=== PATIENT | female | born 1990 | race African-American/Black ===

== ENCOUNTER 2019-11-19 22:59 | Emergency (ER) | payer OTHER, SELFPAY ==
--- NOTE | ~2019-11-19 | US_ITS ---
EXAMINATION: US OB <= 14 weeks fetus DATE: 11/20/2019 01:31 INDICATION: Abdominal pain during first trimester of TECHNIQUE: Real-time pelvic ultrasound utilizing both a transvaginal and transabdominal probe was pe rformed. The interpreting radiologist was not present for the study. COMPARISON: None. FINDINGS: The uterus measures 12.1 x 8.5 x 7.5 cm. There is an intrauterine gestational sac. A yolk sac and fe eugene pole are identified. The crown rump length measures 2.0 cm, which correlates with an estimated ge stational age of 8 weeks and 4 days. heart motion is identified measuring 159 beats per minute (bpm) by M-mode Doppler. Crescentic 1.5 x 1.5 x 0.3 cm hypoechoic corpus luteum cyst along the right fundal margin of the gestational sac. The right ovary measures 3.5 x 2.6 x 1.9 cm. The left ovary jana sures 3.2 x 2.7 x 2.2 cm. 14 x 10 x 12 mm anechoic likely corpus luteum cyst in the left ovary. There is no free fluid in the pelvis. IMPRESSION: 1. Single living fetus with heart rate of 159 bpm. 2. Gestational age by ultrasound of 8 weeks 4 day(s) +/- 5 day(s) with ultrasound estimated date of delivery (NOÉ) of 06/27/2020. Reviewed, dictated and finalized at location A. [facility] IMPRESSION: 1. Single living fetus with heart rate of 159 bpm. 2. Gestational age by ultrasound of 8 weeks 4 day(s) +/- 5 day(s) with ultraso und estimated date of delivery (NOÉ) of 06/27/2020.
[2019-11-19 23:00] VITALS: BP 125/72; PULSE 63; RESP 18; TEMP 37.1; O2SAT 100
[2019-11-19 23:25] LABS: Basophils Percent Auto 0.4 % (0.2-1.2); Eosinophils Absolute Auto 0.1 K/mm3 (0-0.3); Hematocrit 35.2 % (37.0-47.0); Hemoglobin 11.4 g/dL (12.0-15.0); Immature Granulocyte Absolute 0.02 K/mm3 (0.00-0.031); Immature Granulocyte Percent A 0.2 % (0-0.5); Mean Corpuscular HGB Conc 32.4 g/dl (32-36); Mean Corpuscular Hemoglobin 28.1 pg (26-34); Mean Corpuscular Volume 86.7 fl (80-100); Mean Platelet Volume 11.7 fl (7.4-10.4); Monocytes Absolute Auto 0.6 K/mm3 (0.1-0.6); Monocytes Percent Auto 7.5 % (2.6-8.5); Neutrophils Absolute Auto 5.1 K/mm3 (1.3-6.7); Neutrophils Percent Auto 60.9 % (45.5-73.1); Platelet Count Result 254 k/mm3 (150-375); Red Blood Count 4.06 M/mm3 (4.2-5.4); Red Cell Distribution Width 13.9 % (11.5-14.5); White Blood Count 8.3 K/mm3 (4.5-10.0)
[2019-11-19 23:37] LABS: Add Urine Microscopic? NO; Appearance Urine Clear (Clear); Bilirubin Urine Negative (Negative); Blood Urine Negative (Negative); Color Urine Yellow (Yellow); Glucose Urine UA Negative (Negative); Ketones Urine Negative (Negative); Leukocyte Esterase Ur Negative LEU/UL (Negative); Nitrate Urine Negative (Negative); Protein Urine Negative (Negative); Specific Grav Ur 1.026 (1.001-1.035); Urobilinogen Urine Negative mg/dL (<2.0)
--- NOTE | 2019-11-20 00:33 | ED.PREGNANCY ---
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 Pt is 8 weeks gestation. Pt's LMP was on 09/20/19. She notes that she took an at home test, but she has not seen an OB since her test. Pt denies any alleviating or aggravating factors. Pt also reports nausea, but denies vaginal bleeding, vaginal discharge, dysuria, fever, and vomiting. MD Complaint: abdominal pain Onset (ago): day(s) (1) Pain Consistency: constant Location: abdomen Associated symptoms: nausea Vaginal discharge: none Vaginal bleeding: none Date of Last Menstrual Period: 09/20/19 Patient : Yes Number of Weeks : 8 Related Data Allergies Allergy/AdvReac Type Severity Reaction Status Date / Time No Known Allergies Allergy Unverified 02/25/19 17:24 Review of Systems Review of Systems: All systems reviewed & are unremarkable except as noted in HPI and below Constitutional: Constitutional: Denies fever(s) Gastrointestinal: Gastrointestinal: Reports abdominal pain (suprapubic), Reports nausea and Denies vomiting Genitourinary: Genitourinary: Denies abnormal vaginal bleeding, Denies dysuria and Denies vaginal discharge [facility] Past Medical History Medical History (Updated 11/21/19 @ 00:00 by Guilherme Bean) PCOS (polycystic ovarian syndrome) Surgical History Surgical History (Updated 11/20/19 @ 00:39 by Denice Diana) No history of previous surgery Social History Social History (Updated 11/20/19 @ 00:39 by Denice Diana) Smoking status: Never smoker Exam Const: General: no acute distress and well developed Orientation/consciousness: oriented to person, oriented to place, oriented to time and patient oriented x3 HENMT: Head: normocephalic Ears: external ears normal General nose exam: Normal external nose present Eyes: General: appearance normal, both eyes and all related structures Conjunctivae: conjunctivae normal Neck: Neck: normal visual inspection and full ROM Chest: Chest palpation & inspection: normal inspection of the chest and no tenderness Resp: Effort & Inspection: normal respiratory effort Auscultation: clear to auscultation bilaterally Cardio: Rate: regular rate Rhythm: regular rhythm GI: GI Palp: No abdominal tenderness and Yes Soft to palpation : Speculum Exam - Vagina: abnormal vaginal discharge white and No vaginal bleeding Speculum Exam - Cervix: Cervical os closed Bimanual exam- vagina & uterus: No Cervical tenderness present and non-tender Bimanual Exam- Adnexa, other: No adnexal tenderness Skin: General skin exam: normal color and turgor normal Neuro: General: oriented to person, oriented to place, oriented to time and patient oriented x3 Cognition (Neuro): normal cognition Extrem: General: normal to inspection, full ROM and no pedal edema Psych: Appearance: grossly normal Mental Status: mental status grossly normal Affect: normal affect Course Vital Signs Vital signs: Vital Signs Temperature 37.1 C 11/19/19 23:00 Pulse Rate 63 11/19/19 23:00 Respiratory Rate 18 11/19/19 23:00 Blood Pressure 125/72 11/19/19 23:00 Pulse Oximetry 100 11/19/19 23:00 Temperature 37.1 C 11/19/19 23:00 Pulse Rate 65 11/20/19 02:00 Respiratory Rate 16 11/20/19 02:00 Blood Pressure 131/71 11/20/19 02:00 Pulse Oximetry 100 11/20/19 02:00 MDM - OB/Uterine Contractions Lab Data Result diagrams: 11/19/19 23:10 Labs: Lab Results 11/19/19 11/19/19 11/19/19 Range/Units 23:09 23:10 23:10 WBC 8.3 (4.5-10.0) K/mm3 RBC 4.06 L (4.2-5.4) M/mm3 Hgb 11.4 L (12.0-15.0) g/dL Hct
--- NOTE | 2019-11-20 01:09 | PC.NURSE ---
sandra in lab aware of hepatic panel add on.
[2019-11-20 01:19] LABS: Alanine Aminotransferase 16 U/L (4-35); Albumin Level 3.7 g/dL (3.5-5.1); Alkaline Phosphatase 65 U/L (38-126); Aspartate Amino Transferase 25 U/L (14-36); Bilirubin,Total 0.3 mg/dL (0.2-1.3)
[2019-11-20 02:00] VITALS: BP 131/71; PULSE 65; RESP 16; O2SAT 100
== END 2019-11-20 02:10 | disposition home or self-care (01) ==
PROVIDERS: General Practice; Emergency Provider Emergency Medicine
DX: O46.8X1 Other antepartum hemorrhage, first trimester (principal); O26.891 Other specified pregnancy related conditions, first trimester; R10.30 Lower abdominal pain, unspecified; O99.281 Endocrine, nutritional and metabolic diseases complicating pregnancy, first trimester; E28.2 Polycystic ovarian syndrome; Z3A.08 8 weeks gestation of pregnancy
CPT/HCPCS: 36415; 76801; 80076; 81003; 84702; 85025; 99284

== ENCOUNTER → 2020-01-21 14:00 | Outpatient (CLI) | payer OTHER, SELFPAY ==
--- NOTE | ~2020-01-21 | US_ITS ---
EXAMINATION: US OB >= 14 weeks Fetus DATE: 01/21/2020 14:55 INDICATION: Second trimester anatomic survey TECHNIQUE: Real-time ultrasound of the pelvis was performed. COMPARISON: None. FINDINGS: There is a single living fetus in variable presentation. The placenta is anterior and 4.6 cm from the internal cervical os. heart rate is 144 beats per minute (bpm). cardiac activity and fe eugene movement are noted. The amniotic fluid index is subjectively normal. The heart and outflow tracts are not well demonstrated. The following anatomy was identified as normal: 3 vessel cord cord insertion kidneys urinary bladder stomach spine diaphragm ventricles cisterna magna cerebellum The following biometric data were obtained: Biparietal diameter (BPD): 3.8 cm; head circumference (HC): 14.4 cm; abdominal circumference (AC): 12 .1 cm; femur length (FL): 2.2 cm. These measurements are concordant. Estimated weight is 192 g +/- 28 g, which correlates with the 41st percentile when 06/27/2020 is used as estimated date of delivery. As single measurements, these parameters are each equal to the following estimated gestational ages w ith ranges of +/- 2 standard deviations: BPD: 17 weeks 5 days ( 16 weeks 3 days - 18 weeks 6 days). HC: 17 weeks 4 days ( 16 weeks 3 days - 18 weeks 6 days). AC: 17 weeks 6 days ( 16 weeks 1 days - 19 weeks 3 days). FL: 16 weeks 6 days ( 15 weeks 3 days - 18 weeks 2 days). estimated gestational age based solely on measurements from this exam is 17 weeks 4 days +/- 1 weeks 2 days. IMPRESSION: 1. Single living fetus in variable presentation. 2. Estimated weight is 192 g +/- 28 g, which correlates with the 41st percentile when 06/27/2020 is used as estimated date of delivery. 3. Ventricular outflow tracts not well demonstrated. Reviewed, dictated and finalized at location B. IMPRESSION: 1. Single living fetus in variable presentation. 2. Estimated weight is 192 g +/- 28 g, which correlates with the 41st per centile when 06/27/2020 is used as estimated date of delivery. 3. Ventricular outflow tracts not well demonstrated.
== END ==
PROVIDERS: Visit Provider Obstetrics & Gynecology
DX: Z34.91 Encounter for supervision of normal pregnancy, unspecified, first trimester (principal); Z3A.17 17 weeks gestation of pregnancy
CPT/HCPCS: 76805

== ENCOUNTER 2020-02-24 10:42 | Outpatient (CLI) | payer OTHER, MEDICAID, SELFPAY ==
--- NOTE | ~2020-02-24 | US_ITS ---
EXAMINATION: US OB follow up DATE: 02/24/2020 11:29 INDICATION: Routine care TECHNIQUE: Real-time ultrasound of the pelvis was performed. The interpreting radiologist was not pre sent for the study. COMPARISON: 01/21/2020 FINDINGS: There is a single living fetus in breech presentation. The placenta is anterior and not low-lying wi th caudal margin 5.6 cm from the internal cervical os. heart rate is 139 beats per minute (bpm) . The amniotic fluid volume is subjectively normal. Normal four-chamber heart view and left ventricul ar and right ventricular outflow views. IMPRESSION: 1. Single living fetus in vertex presentation with heart rate of 139 bpm. 2. Normal heart views. Reviewed, dictated and finalized at location A.
== END 2020-02-24 10:43 | disposition home or self-care (01) ==
PROVIDERS: Visit Provider Obstetrics & Gynecology
DX: Z34.91 Encounter for supervision of normal pregnancy, unspecified, first trimester (principal)
CPT/HCPCS: 76816

== ENCOUNTER 2020-06-24 06:17 | Inpatient (IN) | payer OTHER, SELFPAY ==
[2020-06-24] VITALS (53 sets, daily range): BP systolic 87–133; BP diastolic 50–84; PULSE 79–105; RESP 13; TEMP 36.6–37.2; O2SAT 98–100; BMI 38.1
--- NOTE | 2020-06-24 06:37 | LDADM ---
This patient, Tristen Barragan, was admitted to Labor/Delivery/Recovery 103 on 06/24/20 at 06:17. Plans for labor, pain management and were discussed with patient. Patient/family oriented to hospital policies and general routines including ID bracelet, bed and alarms, visiting hours, pain management, procedures, bathroom and other care routines, personal items, smoking policy, room service/diet and guest tray routines, security routines, and visiting hours. Patient/Family are encouraged to report perceived risks to care and to ask questions if they do not understand what they are told or what they should do. See OBIX for further documentation.
[2020-06-24] MEDS: LACTATED RINGERS 1,000 ML 125 ML IV CONT (06:51)
[2020-06-24] MEDS: AMPICILLIN 2 GM/NS 100 ML 2 GM/100 ML BAG IVPB (06:51)
[2020-06-24] MEDS: OXYTOCIN 30 UNITS/NS 500 ML 30 UNITS/500 ML BAG IV CONT (06:52)
[2020-06-24 06:55] LABS: Basophils Percent Auto 0.2 % (0.2-1.2); Eosinophils Absolute Auto 0.1 K/mm3 (0-0.3); Eosinophils Percent Auto 0.8 % (0-4.4); Hematocrit 34.5 % (37.0-47.0); Hemoglobin 11.4 g/dL (12.0-15.0); Immature Granulocyte Absolute 0.05 K/mm3 (0.00-0.031); Immature Granulocyte Percent A 0.5 % (0-0.5); Lymphocytes Absolute Auto 1.84 K/mm3 (0.9-3.2); Lymphocytes Percent Auto 20.1 % (18.3-44.2); Mean Corpuscular Hemoglobin 29.6 pg (26-34); Mean Corpuscular Volume 89.6 fl (80-100); Mean Platelet Volume 12.1 fl (7.4-10.4); Monocytes Absolute Auto 0.7 K/mm3 (0.1-0.6); Monocytes Percent Auto 8.1 % (2.6-8.5); Neutrophils Absolute Auto 6.4 K/mm3 (1.3-6.7); Neutrophils Percent Auto 70.3 % (45.5-73.1); Platelet Count Result 208 k/mm3 (150-375); Red Blood Count 3.85 M/mm3 (4.2-5.4); Red Cell Distribution Width 13.8 % (11.5-14.5); White Blood Count 9.2 K/mm3 (4.5-10.0)
--- NOTE | 2020-06-24 06:57 | WPDANESEPP ---
Anes - Eval Pre Procedure Procedure: labor epidural Date/Time: 06/24/20 06:57 Preop Diagnosis: labor pain Pre Op Diagnosis: iol Patient Data Age: 29 Gender: F Height: 5 ft 5 in Weight: 104 kg Allergies Allergy/AdvReac Type Severity Reaction Status Date / Time latex Allergy Itching Verified 05/30/20 14:52 Home Medications Medication Instructions Recorded Confirmed Type folic acid 05/30/20 History metformin mg BID 05/30/20 History multivitamin tablet 05/30/20 History progesterone micronized mg BID 05/30/20 History Laboratory Tests 06/24/20 06/24/20 06/24/20 06:34 06:34 06:34 WBC Pending RBC Pending Hgb Pending Hct Pending MCV Pending MCH Pending MCHC Pending RDW Pending Plt Count Pending MPV Pending Immature Gran % (Auto) Pending Neut % (Auto) Pending Lymph % (Auto) Pending [place] % (Auto) Pending Eos % (Auto) Pending Baso % (Auto) Pending Lymph # (Auto) Pending [place] # (Auto) Pending Eos # (Auto) Pending Baso # (Auto) Pending Abs Immat Gran (auto) Pending Absolute Neuts (auto) Pending Absolute Nucleated RBC Pending Nucleated RBC % Pending RPR Pending HIV 1&2 Ab/P24 Ag 4thGn Pending Patient hx anesthesia problems: none Family hx anesthesia problems: none PMFSH Past Medical History Medical History (Updated 11/21/19 @ 00:00 by Guilherme Bean) PCOS (polycystic ovarian syndrome) Surgical History Surgical History (Updated 11/20/19 @ 00:39 by Denice Diana) No history of previous surgery Social History Social History (Updated 11/20/19 @ 00:39 by Denice Diana) Smoking status: Never smoker Substance use: never Gender identity (if verbalized by the patient): Female Spiritual care concerns: No Exam Day of Procedure 06/24/20 06:57
[2020-06-24 07:47] LABS: HIV 1/2 Ab P24 Ag Result Negative (Negative)
[2020-06-24] MEDS: AMPICILLIN 1 GM/NS 50 ML 1 GM/50 ML BAG IVPB ×2 (10:53→14:42)
--- NOTE | 2020-06-24 16:43 | PM.IMHP ---
H&P: HPI History of Present Illness Date/Time: 06/24/20 16:43 Chief complaint: iol Narrative: Tristen Barragan is a 29 year old AAF presents for LYN at 39w gestation.. Pmhx MTHFR (b12=9/2), abnormal progesterone, GBS, HPV, and PCOS. Plan for induction 06/24. No complaints. Review of Systems Review of Systems: All systems reviewed & are unremarkable except as noted in HPI and below Constitutional: Constitutional: Reports no additional constitutional complaints Eyes: Eyes: Reports no additional eye complaints ENT: Reports system reviewed and no additional complaints, except as documented Cardiovascular: Cardiovascular: Reports no additional cardiovascular complaints Respiratory: Respiratory: Reports no additional respiratory complaints Gastrointestinal: Gastrointestinal: Reports no additional gastrointestinal complaints Genitourinary: Genitourinary: Reports no additional female genitourinary complaints Musculoskeletal: Musculoskeletal: Reports no additional musculoskeletal complaints Integumentary/Breasts: Skin/Breast: Reports system reviewed and no additional complaints, except as docu Neurologic: Reports system reviewed and no additional complaints, except as documented Psychiatric: Psychiatric: Reports no additional psychiatric complaints Endocrine: Endocrine: Reports no additional endocrine complaints Hematologic/Lymphatic: Hematologic/Lymphatic: Reports no additional hematologic/lymphatic complaints Allergic/Immunologic: Allergic/Immunologic: Reports no additional allergic/immunologic complaints [facility] Past Medical History Medical History (Updated 06/24/20 @ 16:54 by Rajat Mercado MD) Cardiac arrhythmia GBS (group B Streptococcus carrier), +RV culture, currently 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 History of LEEP (loop electrosurgical excision procedure) of cervix complicating HPV (human papilloma virus) anogenital infection PCOS (polycystic ovarian syndrome) Rectocele Surgical History Surgical History (Updated 06/24/20 @ 16:51 by Rajat Mercado MD) H/O bilateral breast reduction surgery 2013 H/O LEEP 2007 History of dilatation and curettage 2016 No history of previous surgery Family History Family History (Updated 06/24/20 @ 16:51 by Rajat Mercado MD) Grandparent Diabetes mellitus Social History Social History (Updated 06/24/20 @ 16:52 by Rajat Mercado MD) Smoking status: Never smoker Second hand tobacco smoke exposure: No Alcohol intake: never Substance use: never Substance use type: does not use Living arrangements: with family Occupation/Education: unemployed Gender identity (if verbalized by the patient): Female Sexual Orientation (if Verbalized by the Patient): Straight or Heterosexual Spiritual care concerns: No Agree to blood products: Yes Meds Home Medications and Allergies Home Medications Medication Instructions Recorded Confirmed Type folic acid 1 mg PO DAILY 05/30/20 06/24/20 History metformin [Glucophage] 500 mg PO BID 05/30/20 06/24/20 History multivitamin 1 tablet PO DAILY 05/30/20 06/24/20 History progesterone micronized 200 mg VAGINAL BID 05/30/20 06/24/20 History Allergies Allergy/AdvReac Type Severity Reaction Status Date / Time latex Allergy Itching Verified 05/30/20 14:52 Vital Signs Vital Signs - 24 hr 06/24/20 07:01 06/24/20 07:16 06/24/20 07:30 Temperature 98 F Pulse Rate 88 87 Blood Pressure 111/79 109/73 Pulse Oximetry 06/24/20 07:31 06/24/20 07:46 06/24/20 08:01 Temperature Pulse Rate 79 81 89 Blood Pressure 113/62 115/72 123/76 Pulse Oximetry 06/24/20 08:16 06/24/20 08:31 06/24/20 08:46 Temperature Pulse Rate 91 86 105 H Blood Pressure 107/69 110/63 107/83 Pulse Oximetry 06/24/20 09:16 06/24/20 09:30 06/24/20 09:31 Temperature 97.9 F Pulse Rate 89 81 Blood Pressure 113/64 113/67 Pulse Oximetry 06/24/20 09:
--- NOTE | 2020-06-24 16:54 | WPDHPUPDATE1 ---
History and Physical Update Update Date/Time: 06/24/20 16:54 History and Physical has been reviewed, including an updated exam of the patient. There are NO changes in the patient's condition. Risks, benefits, and alternatives have been discussed and questions answered. Patient agrees to proceed with procedure. 29 yo AAF presents for LYN at 39w gestation.. Pmhx MTHFR (b12=9/), abnormal progesterone, GBS, HPV, and PCOS. Plan for induction 06/24. No complaints.
--- NOTE | 2020-06-24 16:55 | WPDOBADMIT ---
Obstetrics - Admit Note Admission Note: record reviewed. No pertinent additions to the history and/or any subsequent changes in the physical findings that are not consistent with the expected course of the were found. Additions to the history and/or subsequent changes in the physical findings follow. None. 29 yo AAF presents for LYN at 39w gestation.. Pmhx MTHFR (b12=/), abnormal progesterone, GBS, HPV, and PCOS. Plan for induction 06/24. No complaints. informed consent obtained
--- NOTE | 2020-06-24 16:55 | PM.OBPNLAB ---
Pain Control Date/time seen: 06/24/20 16:55 Pain control: tolerating well and narcotic analgesia Pelvic Exam Dilation (cm): 5 Effacement (%): 100 Amniotic membrane status: Bulging Comments: arom clear af iupc placed Contractions Monitor mode: External Contraction frequency: 3 Contraction duration: 45 Contraction pattern: Regular Contraction phase: Contraction Contraction intensity: Moderate Status status: Category l Assessment and Plan Pitocin rate (mU/min): 2 Assessment: active labor and induction ongoing Plan: continuous present management and begin patient augmentation
[2020-06-24] MEDS: OXYTOCIN 30 UNITS/NS 500 ML 30 UNITS/500 ML BAG 125 UNITS IV CONT (17:35)
--- NOTE | 2020-06-24 17:38 | PM.OBPRVD ---
OB - Delivery Note Procedure Delivery date: 06/24/20 Procedure: Normal Spontaneous vertex vaginal delivery of viable male infant and placenta Induction method: none Delivery augmentation: rupture of membranes and pitocin Delivery monitor: external FHT and internal uterine Route of delivery: Episiotomy description: None Laceration description: None Specimen: Yes (placenta) Estimated blood loss (mL): 200 Anesthesia type: None Disposition: floor Complications: none Narrative: Patient was completely dilated had a controlled normal spontaneous vertex vaginal delivery of a viable male infant over an intact perineum with legs in Monserrat bruits the infant vertex was delivered and then the anterior shoulder was delivered without difficulty the baby was placed on the maternal abdomen there was spontaneous respirations and cry bulb suction. The umbilical cord was clamped and cut and the infant was handed to the pediatric nurse in attendance scores 8 and 9 at 1 and 5 minutes wait 7 lb 9 oz 18-1/2 inches long infant taken to the nursery in stable condition the baby boy's name is Jonathan. The placenta was delivered at 5:10 p.m. intact with a 3 vessel cord after cord blood gases and cord blood was obtained the uterus contracted well with Pitocin given intravenously and blood loss was 200 cc. The cervix and rectum were checked no sponges left in the vagina no fistula the sphincter was intact the mom delivered in LDR Room 1. 0 3 time from rupture of membranes at 4:24 p.m. to the time of delivery at 5:04 p.m. 40 minutes. Mom and baby doing well VTE prevention not applicable patient ambulatory. GBS prophylaxis x3 doses penicillin patient will be breast feeding java j2ee lead Dr. Reyes and the baby will be circumcised in the morning Baby Date of : 06/24/20 Time of : 17:04 Weeks of gestation at delivery: 39 gender: Male Weight (pounds): 7 Weight (ounces): 9 presentation: vertex position: Left Occiput Anterior Placenta delivery description: Spontaneous and Normal Configuration cord vessel description: 3 Vessels score one minute: 8 score five minutes: 9
--- NOTE | 2020-06-24 17:45 | PM.OBDSVD ---
DS: Admitting Diagnosis Admitting Diagnosis Admitting Diagnosis: term History of prior loop electrosurgical excision procedure of the cervix Group B Streptococcus carrier Elective induction of labor History of cardiac arrhythmia History of rectocele History of HPV Heterozygous for MTHFR mutation PCOS DS: Discharge Diagnosis Discharge Diagnosis (1) Term : Code(s): Z34.90 - Encounter for supervision of normal , unspecified, unspecified trimester Status: Acute (2) Term delivered: Code(s): O80 - Encounter for full-term uncomplicated delivery Status: Acute (3) H/O LEEP: Code(s): Z98.890 - Other specified postprocedural states Status: Acute (4) History of LEEP (loop electrosurgical excision procedure) of cervix complicating : Code(s): O34.40 - Maternal care for other abnormalities of cervix, unspecified trimester; Z98.890 - Other specified postprocedural states Status: Acute (5) Rectocele: Code(s): N81.6 - Rectocele Status: Acute (6) Cardiac arrhythmia: Code(s): I49.9 - Cardiac arrhythmia, unspecified Status: Acute (7) HPV (human papilloma virus) anogenital infection: Code(s): A63.0 - Anogenital (venereal) warts Status: Acute (8) Heterozygous MTHFR mutation [id number]: Code(s): E72.12 - Methylenetetrahydrofolate reductase deficiency Status: Acute (9) GBS (group B Streptococcus carrier), +RV culture, currently : Code(s): O99.820 - Streptococcus B carrier state complicating Status: Acute OB - DS: Summary Hospital Course Time spent discussing smoking cessation with patient: 3 to 10 minutes OB Procedures : Ultrasound OB Procedures Intrapartum: Spontaneous Vag Delivery and GBS prophylaxis OB Procedures: : None Peripartum Data Delivery Method: Natural Vaginal Laceration description: None Episiotomy description: None complications: none 1: Gender: Male Disposition of : home Status at Discharge Functional status at discharge: independent ambulation Overall status at discharge: patient is back to baseline Time Spent with Patient Time attestation: Total time spent providing and/or coordinating discharge services: Time spent: Less than 30 minutes Exam Const: General: comfortable, no acute distress, alert and awake Orientation/consciousness: patient oriented x3 Limitations: no limitations Chest: Breast/axilla inspection: normal inspection of the breasts Breast/axilla palpation: normal palpation of the breasts Resp: Effort & Inspection: normal respiratory effort Cardio: Rate: regular rate GI: GI Palp: Yes Soft to palpation Percussion: Yes normal to percussion Auscultation: normal bowel sounds : General: Yes bladder normal to inspection and Yes no CVA tenderness Psych: Appearance: grossly normal Affect: normal affect Attitude: cooperative Thought content: Yes Normal thought content present Judgement: Good judgement present (Psych) DS: Data Data Completed and Pending Labs on day of discharge: Labs from last 24 hours 06/24/20 06/24/20 06/24/20 06:34 06:34 06:34 WBC 9.2 RBC 3.85 L Hgb 11.4 L Hct 34.5 L MCV 89.6 MCH 29.6 MCHC 33.0 RDW 13.8 Plt Count 208 MPV 12.1 H Immature Gran % (Auto) 0.5 Neut % (Auto) 70.3 Lymph % (Auto) 20.1 [place] % (Auto) 8.1 Eos % (Auto) 0.8 Baso % (Auto) 0.2 Lymph # (Auto) 1.84 [place] # (Auto) 0.7 H Eos # (Auto) 0.1 Baso # (Auto) 0.0 Abs Immat Gran (auto) 0.05 H Absolute Neuts (auto) 6.4 Absolute Nucleated RBC 0.0 Nucleated RBC % 0.0 RPR Pending HIV 1&2 Ab/P24 Ag 4thGn Blood Type A Positive Antibody Screen Negative 06/24/20 06:34 WBC RBC Hgb Hct MCV MCH MCHC RDW Plt Count MPV Immature Gran % (Auto) Neut % (Auto) Lymph % (Au
[2020-06-24] MEDS: IBUPROFEN 600 MG TABLET PO (18:23)
[2020-06-24] MEDS: WITCH HAZEL 40 PADS 1 PAD TOPICAL (19:22)
[2020-06-24] MEDS: BENZOCAINE 20% AER SPR (*SP) 56 GM CAN 1 SPRAY TOPICAL (19:22)
[2020-06-24] MEDS: HYDROcodone/acetaminophen (*CRX) 10-325 MG TABLET 1 TAB PO (20:12)
[2020-06-25] MEDS: IBUPROFEN 600 MG TABLET PO ×2 (04:57→14:14)
[2020-06-25 05:47] LABS: Hematocrit 32.8 % (37.0-47.0); Hemoglobin 10.8 g/dL (12.0-15.0)
[2020-06-25 07:35] VITALS: BP 109/67; PULSE 82; RESP 18; TEMP 36.6; O2SAT 96
--- NOTE | 2020-06-25 08:00 | PC.NURSE ---
PT introductions made and plan of care discussed per post , pain management, breast feeding, daily care activities. PT verbalized understanding of such care.
[2020-06-25] MEDS: DOCUSATE SODIUM 100 MG CAPSULE PO ×2 (09:45→17:36)
[2020-06-25] MEDS: MULTIVIT/MIN/PREN/FOL AC/IRON TABLET 1 TAB PO (09:45)
[2020-06-25] MEDS: HYDROcodone/acetaminophen (*CRX) 5-325 MG TABLET 1 TAB PO ×2 (09:46→17:36)
[2020-06-25] MEDS: LANOLIN (LANSINOH) 7.5 GM CREAM 1 APPLIC TOPICAL (09:47)
[2020-06-25 09:50] VITALS: PULSE 82; RESP 18; O2SAT 96
[2020-06-25 11:14] LABS: Rapid Plasma Reagin Non-Reactive (NonReactive)
--- NOTE | 2020-06-25 11:50 | PC.NURSE ---
Consulted with patient, mother is attempting to breast. Mother reports has used the nipple shield during the night. keeps tongue up and does not allow correct latch. Observed mother has had a breast reduction. Mother states she pumped and bottle fed last child with no milk supply issues. She pumped due to had a tied tongue and latch issues. Discussed nipple shield precautions and possible complications. Instructions given on application and cleaning of shield. Patient able to return demonstration on proper application of shield. Discussed the need for regular pumping if continues to nurse with the shield. Patient verbalizes understanding. Reviewed feeding cues, frequencies, duration of feedings, feeding elimination flow sheet, and signs of adequate intake. Demonstrated stimulation techniques to wake infant for feeding. Assisted with to breast with nipple shield. Reviewed positioning/alignment in cross cradle, holding breast in U hold and guided asymmetrical latch on. was able to latch correctly. nursed sleepily with bursts of rhythmic draws and occasional swallowing noted. Reviewed signs of a correct latch, effective nursing and suck swallow ratio. Infant was able to maintain latch without discomfort to mother. Nipple care reviewed. Suggested mother stimulate while feeding to keep infant awake and nursing effectively for increased intake and to assist with maintaining deep latch. Demonstrated how to adjust latch more deeply while feeding. Instructed mother to call out for RN assistance if she is unable to latch infant for feeding or she has discomfort with nursing. Instructed feeding should be initiated three hours from start of last feeding or if feeding cues are noted before. Mother voiced understanding of information shared.
[2020-06-25] MEDS: HYDROcodone/acetaminophen (*CRX) 10-325 MG TABLET 1 TAB PO (14:16)
--- NOTE | 2020-06-25 15:30 | PC.NURSE ---
Breast pump provided due to nipple shield use/ineffective feeding. Instructions given on breast pump care and usage, pumping schedule, nipple care, and collection and storage of breast milk. Encouraged [id number], breast massage and manual expression to stimulate supply. Assessed patient for correct flange size, placement and draw. Patient verbalizes and demonstrates understanding of instructions.
[2020-06-25 20:00] VITALS: BP 106/65; PULSE 82; RESP 16; TEMP 36.8
[2020-06-26] MEDS: IBUPROFEN 600 MG TABLET PO ×2 (01:20→09:28)
[2020-06-26 08:25] VITALS: BP 116/72; PULSE 88; RESP 18; TEMP 36.6; O2SAT 99
--- NOTE | 2020-06-26 09:25 | PC.NURSE ---
Patient instructed on viewing the discharge video Mother & Baby Care, The First Two Weeks . Patient was given the opportunity and encouraged to ask questions. Patient verbalized understanding of information shared and has been given the mother/baby guide for home reference.
[2020-06-26] MEDS: MULTIVIT/MIN/PREN/FOL AC/IRON TABLET 1 TAB PO (09:28)
[2020-06-26] MEDS: DOCUSATE SODIUM 100 MG CAPSULE PO (09:28)
[2020-06-29 10:21] VITALS: BP 111/64; PULSE 68; RESP 20; O2SAT 100
== END 2020-06-26 13:23 | disposition home or self-care (01) | DRG 806 ==
LOC: ANHLDR 17:51 → ANHOB2 19:42
PROVIDERS: Admitting Provider Obstetrics & Gynecology; Visit Provider Obstetrics & Gynecology
DX: O99.824 Streptococcus B carrier state complicating childbirth (principal); E72.12 Methylenetetrahydrofolate reductase deficiency; Z37.0 Single live birth; N81.6 Rectocele; O99.284 Endocrine, nutritional and metabolic diseases complicating childbirth; Z3A.39 39 weeks gestation of pregnancy; O99.42 Diseases of the circulatory system complicating childbirth; I49.9 Cardiac arrhythmia, unspecified
CPT/HCPCS: 36415; 85014; 85018; 85025; 86592; 86703; 86850; 86900; 86901; 88307; A9270; G0432; J0290; J2590; J3010; J7120

== ENCOUNTER 2021-06-26 01:15 | Emergency (ER) | payer OTHER, SELFPAY ==
--- NOTE | ~2021-06-26 | XR_ITS ---
EXAMINATION: XR chest 1V portable INDICATION: Shortness of breath and cough TECHNIQUE: Portable AP chest at 0204 hours COMPARISON: 02/25/2019 FINDINGS: The lungs are free of acute opacities. There is no pleural effusion or pneumothorax. The ca rdiomediastinal silhouette is normal. The visualized bones and soft tissues are unremarkable. IMPRESSION: 1. No acute cardiopulmonary abnormality. Reviewed, dictated and finalized at location A.
[2021-06-26 01:32] VITALS: BP 110/73; PULSE 98; RESP 20; TEMP 36.7; O2SAT 99
--- NOTE | 2021-06-26 01:41 | ECG_ITS ---
Measurements Intervals [place] Rate: 94 P: 48 PA: 147 QRS: 19 QRSD: 82 T: 3 QT: 330 QTc: 413 Interpretive Statements SINUS RHYTHM MINIMAL Q WAVES- HIGH LATERAL LEADS BASELINE ARTIFACT- I, III, AVR, AVL BORDERLINE ECG Electronically Signed On 06-26-2021 6:04:37 CDT by Fernando Villalobos D.O.
[2021-06-26 02:47] LABS: Basophils Percent Auto 0.3 % (0.2-1.2); Eosinophils Absolute Auto 0.2 K/mm3 (0-0.3); Eosinophils Percent Auto 2.4 % (0-4.4); Hematocrit 34.9 % (37.0-47.0); Hemoglobin 11.3 g/dL (12.0-15.0); Immature Granulocyte Absolute 0.02 K/mm3 (0.00-0.031); Immature Granulocyte Percent A 0.3 % (0-0.5); Lymphocytes Absolute Auto 2.18 K/mm3 (0.9-3.2); Lymphocytes Percent Auto 27.6 % (18.3-44.2); Mean Corpuscular HGB Conc 32.4 g/dl (32-36); Mean Corpuscular Hemoglobin 28.8 pg (26-34); Mean Platelet Volume 10.9 fl (7.4-10.4); Monocytes Absolute Auto 0.7 K/mm3 (0.1-0.6); Monocytes Percent Auto 8.4 % (2.6-8.5); Neutrophils Absolute Auto 4.8 K/mm3 (1.3-6.7); Platelet Count Result 275 k/mm3 (150-375); Red Blood Count 3.92 M/mm3 (4.2-5.4); White Blood Count 7.9 K/mm3 (4.5-10.0)
[2021-06-26 02:47] LABS: Add Urine Microscopic? NO; Appearance Urine Clear (Clear); Bilirubin Urine Negative (Negative); Blood Urine Negative (Negative); Color Urine Straw (Yellow); Glucose Urine UA Negative (Negative); Ketones Urine Negative (Negative); Leukocyte Esterase Ur Negative LEU/UL (Negative); Nitrate Urine Negative (Negative); Protein Urine Negative (Negative); Specific Grav Ur 1.012 (1.001-1.035); Urobilinogen Urine Negative mg/dL (<2.0)
[2021-06-26 02:53] LABS: D Dimer 1.04 ug/mL (<0.48)
[2021-06-26 02:56] LABS: Alanine Aminotransferase 17 U/L (4-35); Albumin Level 3.7 g/dL (3.5-5.1); Alkaline Phosphatase 77 U/L (38-126); Anion Gap 7 mmol/L (8-16); Aspartate Amino Transferase 39 U/L (14-36); Bilirubin,Total 0.4 mg/dL (0.2-1.3); Blood Urea Nitrogen 13 mg/dL (7-17); Calcium 8.5 mg/dL (8.4-10.2); Carbon Dioxide 26 mmol/L (22-30); Chloride 105 mmol/L (98-107); Estimated CRCL calculation 100 ml/min; Estimated Glomerular Filt Rate > 60; Glucose 99 mg/dL (65-110); Potassium 3.7 mmol/L (3.4-5.0); Sodium 138 mmol/L (137-145)
[2021-06-26 03:07] LABS: Troponin I < 0.012 ng/mL (0.000-0.034)
--- NOTE | 2021-06-26 03:08 | ED.GENADULT ---
HPI - General Adult General Chief complaint: Shortness of Breath/Dyspnea Stated complaint: Sob on exertion, cp, cough Time Seen by Provider: 06/26/21 01:45 History of Present Illness HPI narrative: Patient is a 30-year-old female who presents the emergency department with complaint of chest pain and cough. Patient states for the last several days she has had a sharp type pain in her sternal border reports that that the pain is worse with inspiration and worse with cough. The patient reports she had a dry cough with this report that its not improved by anything. Patient denies fever denies chills reports that she has not been vaccinated for Covid. Patient states that her last menstrual period was in April. Related Data Home Medications Medication Instructions Recorded Confirmed multivitamin 1 tablet PO DAILY 05/30/20 06/24/20 Allergies Allergy/AdvReac Type Severity Reaction Status Date / Time latex Allergy Itching Verified 05/30/20 14:52 Review of Systems Review of Systems: A 10 system review of systems was completed on the patient and is negative except for what is stated in the HPI. Nursing and ancillary documentation was reviewed. [facility] Past Medical History Medical History Cardiac arrhythmia GBS (group B Streptococcus carrier), +RV culture, currently Heterozygous MTHFR mutation [id number] History of LEEP (loop electrosurgical excision procedure) of cervix complicating HPV (human papilloma virus) anogenital infection Normal vaginal delivery 08/09/2019139.48 lbs.5 oz.FStandard Vaginal [facility]Full [facility]) Rectocele Vaginal delivery 05/08/201213913 hrs.7 lbs.15 oz.MStandard Vaginal DeliveryFull [facility] Surgical History Surgical History H/O bilateral breast reduction surgery 2013 H/O LEEP 2007 History of dilatation and curettage 2017 No history of previous surgery Family History Family History Grandparent Diabetes mellitus Social History Social History Smoking status: Never smoker Second hand tobacco smoke exposure: No Alcohol intake: never Substance use: never Substance use type: does not use Gender identity (if verbalized by the patient): Female Sexual Orientation (if Verbalized by the Patient): Straight or Heterosexual Spiritual care concerns: No Agree to blood products: Yes Exam Narrative: GENERAL: Well-appearing, well-nourished, and in no acute distress. HEAD: Normocephalic, atraumatic. EYES: PERRLA and EOMI. ENT: Nares clear, no rhinorrhea or epistaxis. Mucous membranes moist. NECK: Supple. CHEST: Clear to auscultation. No respiratory distress. There is tenderness to palpation in the right sternal border HEART: Regular rate and rhythm. No murmur heard. Normal peripheral pulses. ABDOMEN: Soft, nontender, nondistended, normal active bowel sounds. EXTREMITIES: Normal range of motion. No edema. SKIN: Warm, dry, no rash. NEURO: No focal deficits. Alert and oriented x3. PSYCH: Normal mood and affect. Course Course Emergency Course: EKG shows a sinus rhythm with a rate of [address] elevation or ST depression Patient's urinalysis showed evidence of positive test. Laboratory studies show a positive D-dimer. It was discussed with the patient the positive test and also discussed the positive D-dimer. It was discussed the risk and benefits of performing a CT scan to evaluate for possible pulmonary embolism patient is trying to decide at this time whether she would like to proceed with doing helical imaging. It was discussed further with the patient and she opted to
== END 2021-06-26 03:31 | disposition home or self-care (01) ==
PROVIDERS: Emergency Provider Emergency Medicine
DX: O26.891 Other specified pregnancy related conditions, first trimester (principal); R07.89 Other chest pain; O99.281 Endocrine, nutritional and metabolic diseases complicating pregnancy, first trimester; E28.2 Polycystic ovarian syndrome; R94.31 Abnormal electrocardiogram [ECG] [EKG]; Z3A.00 Weeks of gestation of pregnancy not specified
CPT/HCPCS: 36415; 71045; 80053; 81003; 81025; 84484; 85025; 85380; 93005; 99284

== ENCOUNTER 2021-08-08 09:10 | Emergency (ER) | payer OTHER, SELFPAY ==
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
[2021-08-08 09:18] VITALS: BP 119/67; PULSE 89; RESP 18; TEMP 36.4; O2SAT 100
[2021-08-08 09:25] VITALS: BP 119/67; PULSE 89; RESP 18; TEMP 36.4; O2SAT 100
--- NOTE | 2021-08-08 09:26 | ECG_ITS ---
Measurements Intervals [place] Rate: 78 P: 24 [place]: 154 QRS: 26 QRSD: 87 T: -2 QT: 352 QTc: 402 Interpretive Statements SINUS RHYTHM MINIMAL Q WAVES- HIGH LATERAL LEADS NONSPECIFIC ST-T WAVE ABNORMALITY- INFERIOR LEADS ABNORMAL ECG Electronically Signed On 08-08-2021 14:58:25 CDT by Fernando Villalobos D.O.
[2021-08-08 09:47] LABS: Basophils Absolute Auto 0.1 K/mm3 (0.0-0.1); Basophils Percent Auto 0.6 % (0.2-1.2); Eosinophils Absolute Auto 0.1 K/mm3 (0-0.3); Eosinophils Percent Auto 1.7 % (0-4.4); Hematocrit 38.8 % (37.0-47.0); Hemoglobin 12.7 g/dL (12.0-15.0); Immature Granulocyte Absolute 0.01 K/mm3 (0.00-0.031); Immature Granulocyte Percent A 0.1 % (0-0.5); Lymphocytes Percent Auto 25.7 % (18.3-44.2); Mean Corpuscular HGB Conc 32.7 g/dl (32-36); Mean Corpuscular Hemoglobin 29.4 pg (26-34); Mean Corpuscular Volume 89.8 fl (80-100); Mean Platelet Volume 10.7 fl (7.4-10.4); Monocytes Absolute Auto 0.4 K/mm3 (0.1-0.6); Monocytes Percent Auto 5.4 % (2.6-8.5); Neutrophils Absolute Auto 5.2 K/mm3 (1.3-6.7); Neutrophils Percent Auto 66.5 % (45.5-73.1); Platelet Count Result 285 k/mm3 (150-375); Red Blood Count 4.32 M/mm3 (4.2-5.4); White Blood Count 7.8 K/mm3 (4.5-10.0)
[2021-08-08 09:55] LABS: Add Urine Microscopic? YES; Appearance Urine Cloudy (Clear); Bilirubin Urine Negative (Negative); Blood Urine Negative (Negative); Color Urine Yellow (Yellow); Glucose Urine UA Negative (Negative); Ketones Urine Negative (Negative); Leukocyte Esterase Ur Negative LEU/UL (Negative); Mucus Urine Rare /lpf; Nitrate Urine Negative (Negative); Protein Urine Negative (Negative); Specific Grav Ur 1.017 (1.001-1.035); Squamous Epithelial Cell Urine Occasional /hpf (Few); Urobilinogen Urine Negative mg/dL (<2.0); WBC Urine 0-3 /hpf
[2021-08-08] MEDS: SODIUM CHLORIDE 0.9% IV 1,000 ML 999 ML IV CONT (09:56)
[2021-08-08 10:03] LABS: Alanine Aminotransferase 11 U/L (4-35); Albumin Level 3.8 g/dL (3.5-5.1); Alkaline Phosphatase 75 U/L (38-126); Anion Gap 6 mmol/L (8-16); Aspartate Amino Transferase 18 U/L (14-36); Bilirubin,Total 0.6 mg/dL (0.2-1.3); Blood Urea Nitrogen 7 mg/dL (7-17); Calcium 9.4 mg/dL (8.4-10.2); Carbon Dioxide 24 mmol/L (22-30); Chloride 106 mmol/L (98-107); Estimated CRCL calculation 114 ml/min; Estimated Glomerular Filt Rate > 60; Glucose 94 mg/dL (65-110); Lipase 46 U/L (23-300); Potassium 4.1 mmol/L (3.4-5.0); Sodium 136 mmol/L (137-145)
[2021-08-08 10:25] VITALS: BP 110/64; PULSE 77; RESP 18; O2SAT 100
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
[2021-08-08 11:00] VITALS: BP 108/63; PULSE 81; RESP 18; O2SAT 100
[2021-08-08 11:36] VITALS: BP 113/74; PULSE 80; RESP 16; O2SAT 100
== END 2021-08-08 11:38 | disposition home or self-care (01) ==
PROVIDERS: Emergency Provider Emergency Medicine; PCP Obstetrics & Gynecology
DX: O9A.211 Injury, poisoning and certain other consequences of external causes complicating pregnancy, first trimester (principal); S09.90XA Unspecified injury of head, initial encounter; R10.30 Lower abdominal pain, unspecified; O99.281 Endocrine, nutritional and metabolic diseases complicating pregnancy, first trimester; E28.2 Polycystic ovarian syndrome; V49.40XA Driver injured in collision with unspecified motor vehicles in traffic accident, initial encounter; Z3A.12 12 weeks gestation of pregnancy
CPT/HCPCS: 36415; 76801; 80053; 81001; 83690; 84702; 85025; 86850; 86900; 86901; 93005; 96360; 96361; 99284; J7030

== ENCOUNTER 2021-09-23 07:42 | Emergency (ER) | payer OTHER, SELFPAY ==
[2021-09-23 08:15] VITALS: BP 106/68; PULSE 86; RESP 16; TEMP 36.2; O2SAT 99
[2021-09-23 08:40] LABS: Basophils Percent Auto 0.4 % (0.2-1.2); Eosinophils Absolute Auto 0.1 K/mm3 (0-0.3); Eosinophils Percent Auto 1.3 % (0-4.4); Hemoglobin 11.8 g/dL (12.0-15.0); Immature Granulocyte Absolute 0.02 K/mm3 (0.00-0.031); Immature Granulocyte Percent A 0.2 % (0-0.5); Lymphocytes Absolute Auto 1.67 K/mm3 (0.9-3.2); Mean Corpuscular HGB Conc 32.8 g/dl (32-36); Mean Corpuscular Hemoglobin 28.9 pg (26-34); Mean Corpuscular Volume 88.2 fl (80-100); Mean Platelet Volume 11.3 fl (7.4-10.4); Monocytes Absolute Auto 0.5 K/mm3 (0.1-0.6); Monocytes Percent Auto 5.6 % (2.6-8.5); Neutrophils Absolute Auto 6.1 K/mm3 (1.3-6.7); Neutrophils Percent Auto 72.5 % (45.5-73.1); Platelet Count Result 248 k/mm3 (150-375); Red Blood Count 4.08 M/mm3 (4.2-5.4); Red Cell Distribution Width 13.3 % (11.5-14.5); White Blood Count 8.4 K/mm3 (4.5-10.0)
[2021-09-23] MEDS: ACETAMINOPHEN 500 MG TABLET 1000 MG PO (08:41)
[2021-09-23 08:43] LABS: Add Urine Microscopic? NO; Appearance Urine Clear (Clear); Bilirubin Urine Negative (Negative); Blood Urine Negative (Negative); Color Urine Yellow (Yellow); Glucose Urine UA Negative (Negative); Ketones Urine Negative (Negative); Leukocyte Esterase Ur Negative LEU/UL (Negative); Nitrate Urine Negative (Negative); Protein Urine Negative (Negative); Specific Grav Ur 1.018 (1.001-1.035); Urobilinogen Urine Negative mg/dL (<2.0)
[2021-09-23 08:50] LABS: Alanine Aminotransferase 7 U/L (4-35); Albumin Level 3.4 g/dL (3.5-5.1); Alkaline Phosphatase 73 U/L (38-126); Anion Gap 5 mmol/L (8-16); Aspartate Amino Transferase 17 U/L (14-36); Bilirubin,Total 0.4 mg/dL (0.2-1.3); Blood Urea Nitrogen 8 mg/dL (7-17); Calcium 8.6 mg/dL (8.4-10.2); Carbon Dioxide 25 mmol/L (22-30); Chloride 105 mmol/L (98-107); Estimated CRCL calculation 117 ml/min; Estimated Glomerular Filt Rate > 60; Glucose 91 mg/dL (65-110); Lipase 35 U/L (23-300); Sodium 135 mmol/L (137-145)
--- NOTE | 2021-09-23 09:35 | ED.GENADULT ---
HPI - General Adult General Chief complaint: Abdominal Pain Stated complaint: 18 weeks , abdominal pain Time Seen by Provider: 09/23/21 07:50 History of Present Illness HPI narrative: Patient is a 30-year-old female who presents ER with abdominal pain. She is 18 weeks . 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 No vaginal bleeding or discharge or leakage of fluid. She has not yet felt the baby move. No trauma to her abdomen. She feels like it starts in her lower abdomen and moves up to her mid abdomen. Does not radiate into her back. No fevers or chills or sweats. No urinary frequency urgency or dysuria. Related Data Home Medications Medication Instructions Recorded Confirmed multivitamin 1 tablet PO DAILY 05/30/20 06/24/20 Allergies Allergy/AdvReac Type Severity Reaction Status Date / Time latex Allergy Itching Verified 05/30/20 14:52 Review of Systems Review of Systems: All systems reviewed & are unremarkable except as noted in HPI and below Constitutional: Constitutional: Denies chills, Denies fever(s) and Denies weakness ENT: Denies nasal congestion and Denies sore throat Cardiovascular: Cardiovascular: Denies chest pain, Denies rapid heart rate and Denies radiating jaw, neck or arm pain Respiratory: Respiratory: Denies cough and Denies dyspnea Gastrointestinal: Gastrointestinal: Reports abdominal pain, Denies diarrhea, Denies nausea and Denies vomiting Genitourinary: Genitourinary: Denies abnormal vaginal bleeding, Denies nocturia, Denies dysuria, Denies flank pain and Denies vaginal discharge PMFSH Past Medical History Medical History Cardiac arrhythmia GBS (group B Streptococcus carrier), +RV culture, currently Heterozygous MTHFR mutation [id number] History of LEEP (loop electrosurgical excision procedure) of cervix complicating HPV (human papilloma virus) anogenital infection Normal vaginal delivery 08/09/2019139.48 lbs.5 oz.FStandard Vaginal DeliveryFull Term [facility] PCOS (polycystic ovarian syndrome) Rectocele Vaginal delivery 05/08/201213913 hrs.7 lbs.15 oz.MStandard Vaginal DeliveryFull Term [facility] Surgical History Surgical History H/O bilateral breast reduction surgery 2013 H/O LEEP 2007 History of dilatation and curettage 2016 No history of previous surgery Family History Family History Grandparent Diabetes mellitus Social History Social History Smoking status: Never smoker Second hand tobacco smoke exposure: No Alcohol intake: never Substance use: never Substance use type: does not use Gender identity (if verbalized by the patient): Female Sexual Orientation (if Verbalized by the Patient): Straight or Heterosexual Spiritual care concerns: No Agree to blood products: Yes Exam Narrative: GENERAL: Well-appearing, well-nourished, and in no acute distress. HEAD: Normocephalic, atraumatic. EYES: PERRL and EOMI. CHEST: Clear to auscultation. No respiratory distress. HEART: Regular rate and rhythm. Normal peripheral pulses. ABDOMEN: Soft, nontender, nondistended. Gravid with fundus just below umbilicus. EXTREMITIES: Normal range of motion. No edema. SKIN: Warm, dry, no rash. NEURO: Alert and oriented x3. PSYCH: Normal mood and affect. Course Course Emergency Course: Patient informed results. Recommend Tylenol for pain. Will give on-call OB follow-up. FHT's dopplered. Vital Signs Vital signs: Vital Signs Temperature 97.1 F L 09/23/21 08:15 Pulse Rate 86 09/23/21 08:15 Respiratory Rate 16 09/23/21 08:15 Blood Pressure 106/68 09/23/21 08:15 Pulse Oximetry 99 09/23/21 08:15 Temperature 97.1 F L
[2021-09-23 10:38] VITALS: BP 107/66; PULSE 83; RESP 16; O2SAT 100
== END 2021-09-23 10:38 | disposition home or self-care (01) ==
PROVIDERS: Emergency Provider Emergency Medicine
DX: O26.892 Other specified pregnancy related conditions, second trimester (principal); R10.9 Unspecified abdominal pain; Z3A.18 18 weeks gestation of pregnancy
CPT/HCPCS: 36415; 80053; 81003; 83690; 85025; 99283; A9270

== ENCOUNTER 2021-12-30 09:10 | Observation (INO) | payer OTHER, SELFPAY ==
[2021-12-30 09:38] VITALS: BP 107/64; PULSE 89
[2021-12-30 09:40] VITALS: BMI 37.1
--- NOTE | 2021-12-30 09:40 | OBADM ---
This patient, Tristen Barragan, admitted to the OB room [facility] Post [facility] for observation. Patient/family oriented to hospital policies and general routines including ID bracelet, bed and alarms, visiting hours, pain management, procedures, bathroom and other care routines, personal items, smoking policy, room service/diet, and visiting hours. Patient/Family are encouraged to report perceived risks to care and to ask questions if they do not understand what they are told or what they should do.
[2021-12-30 09:46] VITALS: BP 101/62; PULSE 92
[2021-12-30 10:01] VITALS: BP 105/61; PULSE 94
[2021-12-30 10:16] VITALS: BP 97/54; PULSE 91
[2021-12-30] MEDS: CYCLOBENZAPRINE HCL 10 MG TABLET PO (11:15)
--- NOTE | 2022-01-14 08:19 | PM.OBTRLD ---
OB - Triage/Final Diagnosis Visit Information Comments/Additional reasons for admission: I have assessed the risk for this patient, Tristen Barragan, and determined that she would benefit from observation care. Final Diagnosis (1) Pelvic pain: Code(s): R10.2 - Pelvic and perineal pain Status: Acute
== END 2021-12-30 13:25 | disposition home or self-care (01) ==
PROVIDERS: Admitting Provider Obstetrics & Gynecology; Visit Provider Obstetrics & Gynecology
DX: O26.893 Other specified pregnancy related conditions, third trimester (principal); R10.2 Pelvic and perineal pain; Z3A.32 32 weeks gestation of pregnancy
CPT/HCPCS: A9270; G0378; G0379

== ENCOUNTER 2022-09-17 00:45 | Emergency (ER) | payer OTHER, SELFPAY ==
[2022-09-17 01:14] VITALS: BP 100/60; PULSE 90; RESP 16; TEMP 37; O2SAT 97
--- NOTE | 2022-09-17 02:18 | PC.NURSE ---
pt up to desk reporting I'm leaving ma'am and was ambulatory out of ED with steady gait and in no obvious distress.
== END 2022-09-17 02:18 | disposition left against medical advice (07) ==
LOC: ANHED 02:28
DX: M54.9 Dorsalgia, unspecified (principal); H92.03 Otalgia, bilateral
CPT/HCPCS: 99199